=== PATIENT | male | born 2000 ===

== ENCOUNTER → 2019-03-20 | Outpatient (CLI) | payer OTHER ==
--- NOTE | 2019-03-20 11:29 | WOMENS IMAGING REPORT ---
EXAM DESCRIPTION: U/S BREAST UNILAT LIMITED COMPLETED DATE/TIME: 03/20/2019 7:41 am REASON FOR STUDY: LEFT BREAST;N63.22 N63.22 UNSPECIFIED LUMP IN THE LEFT BREAST, UPPER INNER QUAD COMPARISON: None. TECHNIQUE: Real-time and static grayscale imaging performed of the left breast targeted to the area of clinical concern. Comparison right retroareolar ultrasound images were also obtained. Selected c olor Doppler images recorded. LIMITATIONS: None. FINDINGS: Patient presents with left palpable abnormality retroareolar region. Ultrasound of the left male breast demonstrates very mild gynecomastia in the left retroareolar regio n. No cysts. No masses. No worrisome features. Ultrasound of the right retroareolar region was performed for comparison and is unremarkable. IMPRESSION: Mild left gynecomastia BIRAD: 2 Benign findings. RECOMMENDATION: RECOMMENDED FOLLOW-UP: Follow-up as clinically indicated. COMMENT: The [employer] ([employer]) has developed recommendations for screening MRI of the breasts in certain patient populations, to be used in conjunction with mammography. Breast MRI s urveillance may be appropriate for women with more than 20% lifetime risk of developing breast cancer as determined by genetic testing, significant family history of the disease, or history of mantle r adiation for Hodgkins Disease. [employer] Practice Guidelines 2008. TECHNICAL DOCUMENTATION: JOB ID: [id number] [employer]- All Rights Reserved Reading location - IP/workstation name: [email or web address]
== END ==
LOC: WI 07:02
PROVIDERS: ATTEND Surgery
DX: N63.22 Unspecified lump in the left breast, upper inner quadrant (principal)
CPT/HCPCS: 76642